=== PATIENT | male | born 1960 | race Caucasian/White ===

== ENCOUNTER 2016-08-25 10:32 | Inpatient (IN) | payer SELFPAY ==
[~2016-08-25] VITALS: Ht 180.3 cm; Wt 65.4 kg
[2016-08-25] MEDS ORDERED: IV NORMAL SALINE 1000ML BAG 1,000 ML IV SCH (11:01)
[2016-08-25] MEDS ORDERED: ONDANSETRON PF 4 MG/2 ML VIAL. IV ONE (11:15)
[2016-08-25] MEDS ORDERED: LIDO:MAALOX:DONNATAL 1:1:1 15 ML SINGLE DOSE SWSW ONE (11:15)
--- NOTE | 2016-08-25 11:16 | ED.ADGEN ---
Past Medical History Past Medical History: Anxiety Past Surgical History: Other Additional Past Surgical Histo: COLOSTOMY R/T RUPTURE,ELBOW Additional Information: 1 PPD Alcohol Use: Heavy Additional Information: DRINKS 6 PACK OF BEER A DAY Drug Use: None Adult General Chief Complaint Chief Complaint: NAUSEA/VOMITING/DIARRHA HPI HPI Patient is a 56 year old man, history of a colostomy status post diverticulitis with colonic perforation, anxiety, who presents to the emergency department with complaint of generalized malaise, subjective fevers and chills, rhinorrhea, cough productive of green and white sputum, body aches, nausea, vomiting, abdominal cramping over the past day. Patient denies any sick contacts or exposures, did not receive a flu vaccination this year. One episode of emesis in the emergency department. Food and fluid, no blood. No bile. Patient states that he is having a sore throat as well, feels as though "there is a ball" in the back of my throat. No difficulty with breathing or swallowing. Decreased appetite. No recent travel or surgery, no chest pain or shortness of breath. No swelling extremities. Normal ostomy output. Review of Systems Review of Systems Constitutional: Subjective fevers and chills, generalized malaise. Eyes: Denies change in visual acuity. [] HENT: Nasal congestion and sore throat. Respiratory: Cough productive of green white sputum, no shortness of breath.] Cardiovascular: Denies chest pain or edema. [] GI: Abdominal pain, nausea, vomiting, no bloody stools or diarrhea. : Denies dysuria. [] Musculoskeletal: Denies back pain or joint pain. [] Integument: Denies rash. [] Neurologic: Denies headache, focal weakness or sensory changes. [] Endocrine: Denies polyuria or polydipsia. [] Lymphatic: Denies swollen glands. [] Psychiatric: Denies depression or anxiety. [] Current Medications Current Medications Current Medications Medications (Trade) Dose Ordered Sig/Christoph Start Time Stop Time Status Last Admin Dose Admin Dexamethasone Sodium Phosphate 6 mg 6 mg 1X ONCE 08/25/16 11:45 08/25/16 11:46 DC 08/25/16 11:39 6 MG Iohexol (Omnipaque 300 Mg/ml) 75 ml 1X ONCE 08/25/16 12:00 08/25/16 12:01 DC 08/25/16 12:04 75 ML Lorazepam (Ativan) 2 mg Q6H 08/25/16 12:00 08/26/16 18:01 08/25/16 12:35 2 MG Multi-Ingredient Mouthwash/Gargle 15 ml 15 ml 1X ONCE 08/25/16 11:15 08/25/16 11:16 DC 08/25/16 11:29 15 ML Multivitamins/ Minerals/Thiamine HCl/Folic Acid/ Sodium Chloride (Infuvite Adult/ Iv Sodium Chloride 0.9% 1000ml Bag) 1,011.2 ml @ 100 mls/ hr DAILY 08/25/16 12:00 08/31/16 11:59 08/25/16 12:21 100 MLS/HR Ondansetron HCl (Zofran) 4 mg 1X ONCE 08/25/16 11:15 08/25/16 11:16 DC 08/25/16 11:29 4 MG Sodium Chloride (Iv Sodium Chloride 0.9% 1000ml Bag) 1,000 ml @ 1,000 mls/hr Q1H 08/25/16 11:01 08/25/16 12:00 DC 08/25/16 11:29 1,000 MLS/HR Allergies Allergies Allergies Coded Allergies Type Severity Reaction Last Updated Verified No Known Drug Allergies 08/25/16 No Physical Exam Physical Exam Constitutional: Well developed, well nourished, no acute distress, non-toxic appearance. [] HENT: Normocephalic, atraumatic, bilateral external ears normal, oropharynx moist, patient was injected oropharynx, with slightly enlarged uvula, no evidence of peritonsillar abscess formation, no exudates, oropharynx otherwise clear, term this or swollen bilaterally, with clear rhinorrhea noted. Eyes: PERRLA, EOMI, conjunctiva normal, no discharge. [] Neck: Normal range of motion, no tenderness, supple, no stridor. [] Cardiovascular:Heart rate regular rhythm, no murmur , S1, S2, rubs or gallops. [ ] Lungs & Thorax: Bilateral breath sounds clear to auscultation, no wheezing, rhonchi, rales. No chest wall crepitus or tenderness. [] Abdomen: Bowel sounds normal, soft, mild tenderness palpation in the periumbilical region, patient with ostomy in place, no masses, no pulsatile masses. [] Skin: Warm, dry, no erythema, no rash. [] Back: No tenderness, no CVA tenderness. [] Extremities: No tenderness, no cyanosis, no clubbing, ROM intact, no edema. [] Neurologic: Alert and oriented X 3, normal motor function, normal sensory function, no focal deficits noted. [] Psychologic: Affect normal, judgement normal, mood normal. [] Current Patient Data Vital Signs Vital Signs Date Time Temp Pulse Resp B/P Pulse Ox O2 Delivery O2 Flow Rate FiO2 08/25/16 10:47 97.7 86 28 196/112 93 Room Air 97.7 Lab Values Laboratory Tests Test 08/25/16 10:47 08/25/16 10:51 White Blood Count 9.1x10^3/uL (4.0-11.0) Red Blood Count 4.84x10^6/uL (4.30-5.70) Hemoglobin 15.8g/dL (13.0-17.5) Hematocrit 45.5% (39.0-53.0) Mean Corpuscular Volume 94fL (79-100) Mean Corpuscular Hemoglobin 33pg (25-35) Mean Corpuscular Hemoglobin Concent 35g/dL (31-37) Red Cell Distribution Width 13.6% (11.5-14.5) Platelet Count 361x10^3/uL (140-400) Neutrophils (%) (Auto) 75% (31-73) H Lymphocytes (%) (Auto) 17% (24-48) L Monocytes (%) (Auto) 6% (0-9) Eosinophils (%) (Auto) 1% (0-3) Basophils (%) (Auto) 1% (0-3) Neutrophils # (Auto) 6.9x10^3uL (1.8-7.7) Lymphocytes # (Auto) 1.6x10^3/uL (1.0-4.8) Monocytes # (Auto) 0.6x10^3/uL (0.0-1.1) Eosinophils # (Auto) 0.0x10^3/uL (0.0-0.7) Basophils # (Auto) 0.1x10^3/uL (0.0-0.2) Sodium Level 144mmol/L (136-145) Potassium Level 3.8mmol/L (3.5-5.1) Chloride Level 102mmol/L (98-107) Carbon Dioxide Level 31mmol/L (21-32) Anion Gap 11 (6-14) Blood Urea Nitrogen 9mg/dL (8-26) Creatinine 0.6mg/dL (0.7-1.3) L Estimated GFR (Cockcroft-Gault) 139.9 BUN/Creatinine Ratio 15 (6-20) Glucose Level 157mg/dL (70-99) H Calcium Level 9.3mg/dL (8.5-10.1) Total Bilirubin 0.3mg/dL (0.2-1.0) Aspartate Amino Transferase (AST) 37U/L (15-37) Alanine Aminotransferase (ALT) 56U/L (16-63) Alkaline Phosphatase 113U/L (46-116) Total Protein 7.8g/dL (6.4-8.2) Albumin 4.1g/dL (3.4-5.0) Albumin/Globulin Ratio 1.1 (1.0-1.7) Lipase 1063U/L (73-393) H Ethyl Alcohol Level 13mg/dL (0-10) H Influenza Type A Antigen Negative (NEGATIVE) Influenza Type B Antigen Negative (NEGATIVE) Laboratory Tests 08/25/16 10:47 Laboratory Tests 08/25/16 10:47 EKG EKG EC: Sinus rhythm, heart rate 85 bpm, right axis deviation, with mild baseline artifact, QTC of 455, ND 184, QRS 96, contour abnormalities noted in the inferior leads and the lateral leads, right ventricular hypertrophy noted, abnormal ECG, does not meet STEMI criteria. As interpreted by me. Radiology/Procedures Radiology/Procedures [] [facility] [address] [place] [address] IMAGING REPORT Signed PATIENT: HAKAN HE ACCOUNT: [id number] : 1960 LOCATION: ER AGE: 56 SEX: M EXAM STATUS: REG ER ORD. PHYSICIAN: NANALISA BLAKE DO REASON: abd pain/n/v/pancreatitis PROCEDURE: ABD PELV W/ IV CONTRAST ONLY PQRS Compliance Statement: One or more of the following individualized dose reduction techniques were utilized for this examination: 1. Automated exposure control 2. Adjustment of the mA and/or kV according to patient size 3. Use of iterative reconstruction technique CT of the abdomen and pelvis with contrast, 08/25/2016: History: Abdominal pain Multidetector CT imaging was performed following an IV bolus injection of iodinated contrast material. No oral contrast material was administered as requested. No hepatic abnormality is identified. The gallbladder is unremarkable. There is no evidence of a pancreatic mass or peripancreatic inflammation. The spleen is of normal size. The kidneys show no evidence of obstruction. A tiny subcentimeter low density lesion left kidney is too small to definitively characterize, but is probably a cyst. There is moderate aortoiliac calcific plaquing without evidence of aneurysm. No abdominal or pelvic adenopathy is seen. A colostomy is present in the left lower quadrant. A rectal stump is visible. There is a moderate amount stool in the colon. The small bowel loops are unremarkable. A portion of the appendix is visualized and shows no abnormality. No free air or significant free fluid is evident in the abdomen or pelvis. Moderate degenerative changes are present in the spine, particularly at the L5-S1 disc level. IMPRESSION: No acute abdominal or pelvic abnormality is detected. DICTATED and SIGNED BY: LYDIA SERRANO MD DATE: 08/25/16 1240 CC: ANNALISA BLAKE DO; NO PCP ~ Course & Med Decision Making Course & Med Decision Making Pertinent Labs and Imaging studies reviewed. (See chart for details) Patient with vomiting in the emergency department, complaining of sore throat, generalized malaise and abdominal pain. Laboratory studies obtained, reveal a lipase of 1063, influenza swabs are negative. Reexamination patient didn't speak very tender in the abdomen, and in the epigastric and left her quadrant region, CT of the abdomen and pelvis obtained to rule out any evidence of abscess formation or other concerning finding. CT abdomen and pelvis does not reveal any evidence of acutely concerning findings, did discuss this with patient, he remains nauseous, although he is not having any further vomiting since receiving Zofran in the ED. Patient states he does drink about a sixpack daily, has not had anything to drink today due to vomiting. No evidence of ketosis. Is agreeable for initial hospital for treatment of his pancreatitis with IV fluids and bowel rest. Findings as above discussed with Dr. Juarez of internal medicine, patient accepted to her service as a full admission to the medical surgical floor with plan for IV hydration and symptom management, bridge ordered entered per her request. Dragon Disclaimer Dragon Disclaimer This electronic medical record was generated, in whole or in part, using a voice recognition dictation system. Departure Impression: Primary Impression: Pancreatitis, acute Additional Impression: Alcohol abuse Disposition: HOME, SELF-CARE Admitting Physician: Daisy Juarez Condition: STABLE Problem Qualifiers Primary Impression: Pancreatitis, acute Pancreatitis type: alcohol induced Acute pancreatitis complication: unspecified Qualified Code: K85.20 - Alcohol induced acute pancreatitis without necrosis or infection ANNALISA BLAKE DO Aug 25, 2016 11:16
[2016-08-25 11:17] LABS: BASO # 0.1 x10^3/uL (0.0-0.2); BASO % 1 % (0-3); EOS % 1 % (0-3); HEMATOCRIT 45.5 % (39.0-53.0); HEMOGLOBIN 15.8 g/dL (13.0-17.5); LYMPH # 1.6 x10^3/uL (1.0-4.8); LYMPH % 17 % (24-48); MEAN CORPUSCULAR HEMOGLOBIN 33 pg (25-35); MEAN CORPUSCULAR HGB CONC 35 g/dL (31-37); MEAN CORPUSCULAR VOLUME 94 fL (79-100); MONO % 6 % (0-9); NEUT % 75 % (31-73); PLATELET COUNT 361 x10^3/uL (140-400); RED BLOOD COUNT 4.84 x10^6/uL (4.30-5.70); RED CELL DISTRIBUTION WIDTH 13.6 % (11.5-14.5); WHITE BLOOD COUNT 9.1 x10^3/uL (4.0-11.0)
[2016-08-25 11:25] LABS: CALCIUM 9.3 mg/dL (8.5-10.1); CREATININE 0.6 mg/dL (0.7-1.3); GFR 139.9; POTASSIUM 3.8 mmol/L (3.5-5.1)
[2016-08-25 11:30] LABS: ALBUMIN 4.1 g/dL (3.4-5.0); ALBUMIN/GLOBULIN RATIO 1.1 (1.0-1.7); TOTAL BILIRUBIN 0.3 mg/dL (0.2-1.0); TOTAL PROTEIN 7.8 g/dL (6.4-8.2)
--- NOTE | 2016-08-25 11:33 | EKG ---
[facility] [address] [place] [address] Test Date: 2016-08-25 Test Time: 10:51:25 Pat Name: HAKAN HE Department: Room: Gender: Manager Printing: : 1960 Requested By: ANNALISA BLAKE Order Number: [id number] Reading MD: Patrizia Alcaraz Measurements Intervals [place] Rate: 85 P: 90 WA: 194 QRS: 93 QRSD: 96 T: 139 QT: 382 QTc: 455 Interpretive Statements SINUS RHYTHM RIGHTWARD AXIS QRS(T) CONTOUR ABNORMALITY CONSIDER INFERIOR MYOCARDIAL DAMAGE T ABNORMALITY IN HIGH LATERAL LEADS ABNORMAL ECG RI6.01 No previous ECG available for comparison Electronically Signed On 08-28-2016 20:29:36 SPINAL SURGEON by Patrizia Alcaraz
[2016-08-25 11:40] LABS: OBC FLU VALID
[2016-08-25] MEDS ORDERED: DEXAMETHASONE SOD PHOS 4 MG/ML VIAL IV ONE (11:45)
--- NOTE | 2016-08-25 11:46 | RAD ---
Abdomen series with chest, 3 views, 08/25/2016: History: Abdominal pain, and nausea and vomiting, cough The abdominal gas pattern is unremarkable without evidence of obstruction. No free air is seen in the abdomen. Surgical clips are present in the upper pelvis. Aortoiliac calcific plaquing is present. The heart size is normal. A calcified granuloma is present in the right lung. A small opacity projected over the left apex is unchanged and probably represents a scar. No new pulmonary abnormality is seen. There is no evidence of pleural fluid. IMPRESSION: No acute abnormality is identified in the abdomen or chest.
[2016-08-25] MEDS ORDERED: IOHEXOL 300 MG/ML 75 ML VIAL IV ONE (12:00)
[2016-08-25] MEDS: MVI, ADULT NO.4 WITH VIT K 10 ML, THIAMINE 100 MG, FOLIC ACID 1 MG in IV NORMAL SALINE ... IV SCH ×4 (12:21)
[2016-08-25] MEDS: LORAZEPAM 1 MG TABLET. PO SCH ×2 (12:35→19:29)
--- NOTE | 2016-08-25 12:48 | RAD ---
PQRS Compliance Statement: One or more of the following individualized dose reduction techniques were utilized for this examination: 1. Automated exposure control 2. Adjustment of the mA and/or kV according to patient size 3. Use of iterative reconstruction technique CT of the abdomen and pelvis with contrast, 08/25/2016: History: Abdominal pain Multidetector CT imaging was performed following an IV bolus injection of iodinated contrast material. No oral contrast material was administered as requested. No hepatic abnormality is identified. The gallbladder is unremarkable. There is no evidence of a pancreatic mass or peripancreatic inflammation. The spleen is of normal size. The kidneys show no evidence of obstruction. A tiny subcentimeter low density lesion left kidney is too small to definitively characterize, but is probably a cyst. There is moderate aortoiliac calcific plaquing without evidence of aneurysm. No abdominal or pelvic adenopathy is seen. A colostomy is present in the left lower quadrant. A rectal stump is visible. There is a moderate amount stool in the colon. The small bowel loops are unremarkable. A portion of the appendix is visualized and shows no abnormality. No free air or significant free fluid is evident in the abdomen or pelvis. Moderate degenerative changes are present in the spine, particularly at the L5-S1 disc level. IMPRESSION: No acute abdominal or pelvic abnormality is detected.
[2016-08-25] MEDS ORDERED: ONDANSETRON PF 4 MG/2 ML VIAL. IV PRN ×2 (14:00→15:01)
[2016-08-25] MEDS ORDERED: ACETAMINOPHEN 325 MG TABLET. PO PRN (14:00)
[2016-08-25] MEDS ORDERED: MORPHINE SULFATE 4 MG/ML DISP.SYRIN. IV PRN (14:00)
--- NOTE | 2016-08-25 15:13 | ACF ---
Admission Forms Criteria PANCREATITIS Clinical Indications for Admission to Inpatient Care (Place 'X' for any and all applicable criteria): Admission is indicated for ANY ONE of the following (1)(2)(3)(4): [X]I. Acute pancreatitis[A] as indicated by 2 or more of the following: [X]a) Abdominal pain (eg, epigastric, left upper quadrant) [X]b) Serum amylase or serum lipase greater than 3 times the upper limit of normal [ ]c) Characteristic findings from abdominal imaging (eg, pancreatic inflammation, pancreatic necrosis, peripancreatic fluid collection)[B] [ ]II. Pancreatitis (acute or chronic ) requiring inpatient care as indicated by 1 or more of the following : [ ]a) Inability to maintain oral hydration Hypoxemia [ ]b) Evidence of infection (eg, fever, peripancreatic abscess) [ ]c) Severe pain requiring acute inpatient management [ ]d) Hemodynamic instability [ ]e) Hypoxemia [ ]f) Acute renal failure [ ]g) Severe electrolyte abnormalities Extended stay beyond goal length of stay may be needed for (1)(11) [ ]a) Severe acute pancreatitis (10)(19) [ ]b) Persistent symptoms, ascites, or pleural effusion [ ]c) Abdominal compartment syndrome (10) [ ]d) Late complications [ ]e) Acute renal failure (27) [ ]f) Gallstones in gallbladder The original [email or web address] content created by [email or web address] has been revised. The portions of the content which have been revised are identified through the use of italic text or in bold,and [facility] has neither reviewed nor approved the modified material.All other unmodified content is copyright [employer] [facility]. Please see references footnoted in the original [employer] [facility] edition 2016 Admission Criteria Met?: Yes NO C[place] Aug 25, 2016 15:13
[2016-08-25] MEDS ORDERED: ZOLPIDEM 5 MG TABLET. PO PRN (15:15)
--- NOTE | 2016-08-25 15:29 | PDOC1 ---
History and Physical Date of Admission Date of Admission DATE: 08/25/16 TIME: 15:24 Identification/Chief Complaint Chief Complaint abd pain, emesis Source Source: Caregiver, Chart review, Patient History of Present Illness History of Present Illness 56 y/o male who only takes elavil at home, heavy drinker (6 packs a day), comes in bec of emesis, abd pain, etoh level at er was 13m lipase 1060. CTs can fails to show pancreatic inflammation but did show his indwelling colostomy bag left side from a perforated diverticulitis 2 yrs ago at [facility] and some DJD LS spine, Pt admitted for acute panc. ALso smokes 1 ppday NO GB stones seen, non obese Past Medical History Cardiovascular: No pertinent hx Pulmonary: No pertinent hx GI: No pertinent hx Heme/Onc: No pertinent hx Hepatobiliary: No pertinent hx Psych: Depression Infectious disease: No pertinent hx ENT: No pertinent hx Renal/: No pertinent hx Endocrine: No pertinent hx Dermatology: No pertinent hx Past Surgical History Past Surgical History: No pertinent history Family History Family History: No Significant Social History Smoke: 1 pack per day ALCOHOL: heavy Drugs: None Current Problem List Problem List Problems Medical Problems: (1) Alcohol abuse Status: Acute (2) Pancreatitis, acute Status: Acute Problems: Current Medications Current Medications Current Medications Multi-Ingredient Mouthwash/Gargle 15 ml 15 ml 1X ONCE SWSW Last administered on 08/25/16 11:29; Start 08/25/16 at 11:15; Stop 08/25/16 at 11:16; Status DC Sodium Chloride (Iv Sodium Chloride 0.9% 1000ml Bag) 1,000 ml @ 1,000 mls/hr Q1H IV Last administered on 08/25/16 11:29; Start 08/25/16 at 11:01; Stop at 12:00; Status DC Ondansetron HCl (Zofran) 4 mg 1X ONCE IV Last administered on 08/25/16 11:29 ; Start 08/25/16 at 11:15; Stop 08/25/16 at 11:16; Status DC Dexamethasone Sodium Phosphate 6 mg 6 mg 1X ONCE IV Last administered on 11:39; Start 08/25/16 at 11:45; Stop 08/25/16 at 11:46; Status DC Multivitamins/ Minerals/Thiamine HCl/Folic Acid/ Sodium Chloride (Infuvite Adult / Iv Sodium Chloride 0.9% 1000ml Bag) 1,011.2 ml @ 100 mls/ hr DAILY IV Last administered on 08/25/16 12:21; Start 08/25/16 at 12:00; Stop 08/31/16 at 11:59 Lorazepam (Ativan) 2 mg Q6H PO Last administered on 08/25/16 12:35; Start at 12:00; Stop 08/26/16 at 18:01 Iohexol (Omnipaque 300 Mg/ml) 75 ml 1X ONCE IV Last administered on 08/25/16 12:04; Start 08/25/16 at 12:00; Stop 08/25/16 at 12:01; Status DC Ondansetron HCl (Zofran) 4 mg PRN Q8HRS PRN IV NAUSEA/VOMITING; Start 08/25/16 at 14:00; Stop 08/25/16 at 15:03; Status DC Morphine Sulfate 4 mg PRN Q2HR PRN IV PAIN; Start 08/25/16 at 14:00; Stop 08/26 at 13:59 Acetaminophen (Tylenol) 650 mg PRN Q4HRS PRN PO FEVER; Start 08/25/16 at 14:00 ; Stop 08/26/16 at 13:59 Ondansetron HCl 4 mg 4 mg PRN Q6HRS PRN IV NAUSEA/VOMITING; Start 08/25/16 at 15:01 Sodium Chloride (Iv Sodium Chloride 0.9% 1000ml Bag) 1,000 ml @ 100 mls/hr Q10H IV ; Start 08/25/16 at 15:15 Zolpidem Tartrate (Ambien) 5 mg PRN QHS PRN PO INSOMNIA; Start 08/25/16 at 15: 15 Allergies Allergies: Coded Allergies: No Known Drug Allergies (Unverified , 08/25/16) ROS General: No: Appetite, Chills, Fatigue, Malaise, Night Sweats, Other PSYCHOLOGICAL ROS: No: Anxiety, Behavioral Disorder, Concentration difficultie , Decreased libido, Depression, Disorientation, Hallucinations, Hostility, Irritablity, Memory difficulties, Mood Swings, Obsessive thoughts, Other, Physical abuse, Sexual abuse, Sleep disturbances, Suicidal ideation Eyes: No Blurry vision, No Decreased vision, No Double vision, No Dry eyes, No Excessive tearing, No Eye Pain, No Itchy Eyes, No Loss of vision, No Other, No Photophobia, No Scotomata, No Uses contacts, No Uses glasses HEENT: No: Epistaxis, Heacaches, Hearing change, Nasal congestion, Nasal discharge, Oral lesions, Other, Sinus pain, Sneezing, Snoring, Sore Throat, Tinnitus, Vertigo, Visual Changes, Vocal changes ALLERGY AND IMMUNOLOGY: No: Hives, Insect Bite Sensitivity, Itchy/Watery Eyes, Nasal Congestion, Other, Post Nasal Drip, Seasonal Allergies Hematological and Lymphatic: No: Bleeding Problems, Blood Clots, Blood Transfusions, Brusing, Night Sweats, Other, Pallor, Swollen Lymph Nodes ENDOCRINE: No: Breast Changes, Galactorrhea, Hair Pattern Changes, Hot Flashes , Malaise/lethargy, Mood Swings, Other, Palpitations, Polydipsia/polyuria, Skin Changes, Temperature Intolerance, Unexpected Weight Changes Breast: No New/Changing Breast Lumps, No Nipple changes, No Nipple discharge, No Other Respiratory: No: Cough, Hemoptysis, Orthopnea, Other, Pleuritic Pain, SOB with excertion, Shortness of breath, Sputum Changes, Stridor, Tachypnea, Wheezing Cardiovascular: No Chest Pain, No Edema, No Lt Headedness, No Orthopnea, No Other, No Palpitations, No Paroxysmal Noc. Dyspnea Gastrointestinal: Yes Abdominal Pain, Yes Nausea, Yes Vomiting Genitourinary: No , No , No , No , No , No , No , No Discharge, No Dysuria, No Flank Pain, No Frequency, No Hematuria, No Incontinence, No Other, No Pain, No Retention, No Urgency Musculoskeletal: No Gait Disturbance, No Joint Pain, No Joint Stiffness, No Joint Swelling, No Muscle Pain, No Muscular Weakness, No Other, No Pain In:, No Swelling In: Neurological: No Behavorial Changes, No Bowel/Bladder ControlChng, No Confusion , No Dizziness, No Gait Disturbance, No Headaches, No Impaired Coord/balance, No Memory Loss, No Numbness/Tingling, No Other, No Seizures, No Speech Problems , No Tremors, No Visual Changes, No Weakness Skin: No Acne, No Dry Skin, No Eczema, No Hair Changes, No Lumps, No Mole Changes, No Mottling, No Nail Changes, No Other, No Pruritus, No Rash, No Skin Lesion Changes Physical Exam General: Alert, Oriented X3, Cooperative, No acute distress HEENT: PERRLA, EOMI Lungs: Clear to auscultation, Normal air movement Heart: S1S2, RRR, no gallops Cardiovascular: S1, S2 Breasts: Normal Abdomen: Normal bowel sounds, Soft, No tenderness, No hepatosplenomegaly, No masses Male Genitals Exam: normal genitalia, normal prostate Extremities: No clubbing, No cyanosis, No edema, Normal pulses, No tenderness/ swelling Skin: No rashes, No breakdown, No significant lesion Vitals Vitals Vital Signs Date Time Temp Pulse Resp B/P Pulse Ox O2 Delivery O2 Flow Rate FiO2 08/25/16 13:56 74 13 139/85 Room Air 08/25/16 10:47 97.7 93 97.7 Labs Labs Laboratory Tests Test 08/25/16 10:47 08/25/16 10:51 White Blood Count 9.1x10^3/uL (4.0-11.0) Red Blood Count 4.84x10^6/uL (4.30-5.70) Hemoglobin 15.8g/dL (13.0-17.5) Hematocrit 45.5% (39.0-53.0) Mean Corpuscular Volume 94fL (79-100) Mean Corpuscular Hemoglobin 33pg (25-35) Mean Corpuscular Hemoglobin Concent 35g/dL (31-37) Red Cell Distribution Width 13.6% (11.5-14.5) Platelet Count 361x10^3/uL (140-400) Neutrophils (%) (Auto) 75% (31-73) Lymphocytes (%) (Auto) 17% (24-48) Monocytes (%) (Auto) 6% (0-9) Eosinophils (%) (Auto) 1% (0-3) Basophils (%) (Auto) 1% (0-3) Neutrophils # (Auto) 6.9x10^3uL (1.8-7.7) Lymphocytes # (Auto) 1.6x10^3/uL (1.0-4.8) Monocytes # (Auto) 0.6x10^3/uL (0.0-1.1) Eosinophils # (Auto) 0.0x10^3/uL (0.0-0.7) Basophils # (Auto) 0.1x10^3/uL (0.0-0.2) Sodium Level 144mmol/L (136-145) Potassium Level 3.8mmol/L (3.5-5.1) Chloride Level 102mmol/L (98-107) Carbon Dioxide Level 31mmol/L (21-32) Anion Gap 11 (6-14) Blood Urea Nitrogen 9mg/dL (8-26) Creatinine 0.6mg/dL (0.7-1.3) Estimated GFR (Cockcroft-Gault) 139.9 BUN/Creatinine Ratio 15 (6-20) Glucose Level 157mg/dL (70-99) Calcium Level 9.3mg/dL (8.5-10.1) Total Bilirubin 0.3mg/dL (0.2-1.0) Aspartate Amino Transf (AST/SGOT) 37U/L (15-37) Alanine Aminotransferase (ALT/SGPT) 56U/L (16-63) Alkaline Phosphatase 113U/L (46-116) Total Protein 7.8g/dL (6.4-8.2) Albumin 4.1g/dL (3.4-5.0) Albumin/Globulin Ratio 1.1 (1.0-1.7) Lipase 1063U/L (73-393) Ethyl Alcohol Level 13mg/dL (0-10) Influenza Type A Antigen Negative (NEGATIVE) Influenza Type B Antigen Negative (NEGATIVE) Laboratory Tests Test 08/25/16 10:47 08/25/16 10:51 White Blood Count 9.1x10^3/uL (4.0-11.0) Red Blood Count 4.84x10^6/uL (4.30-5.70) Hemoglobin 15.8g/dL (13.0-17.5) Hematocrit 45.5% (39.0-53.0) Mean Corpuscular Volume 94fL (79-100) Mean Corpuscular Hemoglobin 33pg (25-35) Mean Corpuscular Hemoglobin Concent 35g/dL (31-37) Red Cell Distribution Width 13.6% (11.5-14.5) Platelet Count 361x10^3/uL (140-400) Neutrophils (%) (Auto) 75% (31-73) Lymphocytes (%) (Auto) 17% (24-48) Monocytes (%) (Auto) 6% (0-9) Eosinophils (%) (Auto) 1% (0-3) Basophils (%) (Auto) 1% (0-3) Neutrophils # (Auto) 6.9x10^3uL (1.8-7.7) Lymphocytes # (Auto) 1.6x10^3/uL (1.0-4.8) Monocytes # (Auto) 0.6x10^3/uL (0.0-1.1) Eosinophils # (Auto) 0.0x10^3/uL (0.0-0.7) Basophils # (Auto) 0.1x10^3/uL (0.0-0.2) Sodium Level 144mmol/L (136-145) Potassium Level 3.8mmol/L (3.5-5.1) Chloride Level 102mmol/L (98-107) Carbon Dioxide Level 31mmol/L (21-32) Anion Gap 11 (6-14) Blood Urea Nitrogen 9mg/dL (8-26) Creatinine 0.6mg/dL (0.7-1.3) Estimated GFR (Cockcroft-Gault) 139.9 BUN/Creatinine Ratio 15 (6-20) Glucose Level 157mg/dL (70-99) Calcium Level 9.3mg/dL (8.5-10.1) Total Bilirubin 0.3mg/dL (0.2-1.0) Aspartate Amino Transf (AST/SGOT) 37U/L (15-37) Alanine Aminotransferase (ALT/SGPT) 56U/L (16-63) Alkaline Phosphatase 113U/L (46-116) Total Protein 7.8g/dL (6.4-8.2) Albumin 4.1g/dL (3.4-5.0) Albumin/Globulin Ratio 1.1 (1.0-1.7) Lipase 1063U/L (73-393) Ethyl Alcohol Level 13mg/dL (0-10) Influenza Type A Antigen Negative (NEGATIVE) Influenza Type B Antigen Negative (NEGATIVE) VTE Prophylaxis Ordered VTE Prophylaxis Devices: Yes VTE Pharmacological Prophylaxi: Yes Assessment/Plan Assessment/Plan 1.Acute alcoholic pancreatitis 2. EtoH, heavy 3. 1ppday smoker 4. SIRS pOA, no sepsis, no organ dysfcn 5. MIld pCM PLAN: NPO, IVF Recheck lipase bharti SOLO, banana bag Benzos Nicotine patch MAy check lipids Counselled re etoh seen at ER TOMMY CHISHOLM MD Aug 25, 2016 15:28
[2016-08-25] MEDS ORDERED: CHLORDIAZEPOXIDE HCL 25 MG CAPSULE PO PRN (15:30)
[2016-08-25 16:23] LABS: BILIRUBIN,URINE NEGATIVE (NEG); GLUCOSE,URINE NEGATIVE (NEG); NITRITE,URINE NEGATIVE (NEG); PROTEIN,URINE NEGATIVE (NEG-TRACE); UROBILINOGEN,URINE 0.2 mg/dL (0.2 mg/dL)
[2016-08-25 16:26] LABS: BARBITURATES NEG (NEG); BENZODIAZEPINES NEG (NEG); CANNABINOIDS NEG (NEG); COCAINE NEG (NEG); METHADONE NEG (NEG); OPIATES POS (NEG); PHENCYCLIDINE NEG (NEG)
[2016-08-25 16:29] LABS: ETHANOL, URINE POS (NEG)
[2016-08-25 16:36] LABS: BACTERIA,URINE 0 /HPF (0-FEW); RBC,URINE 0 /HPF (0-2); WBC,URINE 0 /HPF (0-4)
[2016-08-25 19:00] VITALS: BP 141/81
[2016-08-25] MEDS ORDERED: INFLUENZA VAX SCREEN BY RX. MC ONE (20:15)
[2016-08-25] MEDS ORDERED: AMIT50TA PO (20:18)
[2016-08-25] MEDS ORDERED: NICOTINE 21MG PATCH. TD SCH (21:00)
[2016-08-25] MEDS ORDERED: AMITRIPTYLINE HCL 50 MG TABLET PO SCH (21:00)
[2016-08-25 22:48] VITALS: BP 137/82
[2016-08-26] MEDS: IV NORMAL SALINE 1000ML BAG 1,000 ML IV SCH ×3 (00:34→11:15)
[2016-08-26] MEDS: LORAZEPAM 1 MG TABLET. PO SCH ×3 (00:35→11:48)
[2016-08-26 04:50] LABS: BASO % 0 % (0-3); EOS % 0 % (0-3); HEMATOCRIT 42.9 % (39.0-53.0); HEMOGLOBIN 14.4 g/dL (13.0-17.5); LYMPH % 15 % (24-48); MEAN CORPUSCULAR HEMOGLOBIN 32 pg (25-35); MEAN CORPUSCULAR HGB CONC 33 g/dL (31-37); MEAN CORPUSCULAR VOLUME 96 fL (79-100); MONO % 9 % (0-9); NEUT % 76 % (31-73); PLATELET COUNT 282 x10^3/uL (140-400); RED BLOOD COUNT 4.47 x10^6/uL (4.30-5.70); RED CELL DISTRIBUTION WIDTH 13.6 % (11.5-14.5); WHITE BLOOD COUNT 6.9 x10^3/uL (4.0-11.0)
[2016-08-26 05:09] LABS: CALCIUM 8.7 mg/dL (8.5-10.1); CREATININE 0.5 mg/dL (0.7-1.3); GFR 172.6; POTASSIUM 3.4 mmol/L (3.5-5.1)
[2016-08-26 05:14] LABS: CHOLESTEROL/HDL RATIO 3.2
[2016-08-26 07:00] VITALS: BP 119/87
[2016-08-26] MEDS ORDERED: FLU VACC QUAD 2016-17 (36MOS+)/PF 0.5 ML SYRINGE. VAX IM ONE (09:00)
[2016-08-26] MEDS: MVI, ADULT NO.4 WITH VIT K 10 ML, THIAMINE 100 MG, FOLIC ACID 1 MG in IV NORMAL SALINE ... IV SCH ×4 (09:07)
[2016-08-26] MEDS ORDERED: POTASSIUM CHLORIDE 20 MEQ TABLET.ER. PO ONE (09:15)
[2016-08-26] MEDS ORDERED: HYDR-2678 PO (10:40)
--- NOTE | 2016-08-26 10:41 | PDOC3 ---
Discharge Summary Visit Information Date of Admission: Aug 25, 2016 Date of Discharge: Aug 26, 2016 Admitting Diagnosis Comment: acute alcoholic pancreatitis Final Diagnosis Problems Medical Problems: (1) Alcohol abuse Status: Acute (2) Pancreatitis, acute Status: Acute Brief Hospital Course Allergies Allergies Coded Allergies Type Severity Reaction Last Updated Verified No Known Drug Allergies 08/25/16 No Vital Signs Vital Signs Date Time Temp Pulse Resp B/P Pulse Ox O2 Delivery O2 Flow Rate FiO2 08/26/16 07:00 97.9 83 18 119/87 94 Room Air 97.9 Lab Results Laboratory Tests Test 08/25/16 10:47 08/25/16 10:51 08/25/16 15:50 08/26/16 03:45 White Blood Count 9.1x10^3/uL (4.0-11.0) 6.9x10^3/uL (4.0-11.0) Red Blood Count 4.84x10^6/uL (4.30-5.70) 4.47x10^6/uL (4.30-5.70) Hemoglobin 15.8g/dL (13.0-17.5) 14.4g/dL (13.0-17.5) Hematocrit 45.5% (39.0-53.0) 42.9% (39.0-53.0) Mean Corpuscular Volume 94fL (79-100) 96fL (79-100) Mean Corpuscular Hemoglobin 33pg (25-35) 32pg (25-35) Mean Corpuscular Hemoglobin Concent 35g/dL (31-37) 33g/dL (31-37) Red Cell Distribution Width 13.6% (11.5-14.5) 13.6% (11.5-14.5) Platelet Count 361x10^3/uL (140-400) 282x10^3/uL (140-400) Neutrophils (%) (Auto) 75% (31-73) 76% (31-73) Lymphocytes (%) (Auto) 17% (24-48) 15% (24-48) Monocytes (%) (Auto) 6% (0-9) 9% (0-9) Eosinophils (%) (Auto) 1% (0-3) 0% (0-3) Basophils (%) (Auto) 1% (0-3) 0% (0-3) Neutrophils # (Auto) 6.9x10^3uL (1.8-7.7) 5.3x10^3uL (1.8-7.7) Lymphocytes # (Auto) 1.6x10^3/uL (1.0-4.8) 1.0x10^3/uL (1.0-4.8) Monocytes # (Auto) 0.6x10^3/uL (0.0-1.1) 0.6x10^3/uL (0.0-1.1) Eosinophils # (Auto) 0.0x10^3/uL (0.0-0.7) 0.0x10^3/uL (0.0-0.7) Basophils # (Auto) 0.1x10^3/uL (0.0-0.2) 0.0x10^3/uL (0.0-0.2) Sodium Level 144mmol/L (136-145) 142mmol/L (136-145) Potassium Level 3.8mmol/L (3.5-5.1) 3.4mmol/L (3.5-5.1) Chloride Level 102mmol/L (98-107) 104mmol/L (98-107) Carbon Dioxide Level 31mmol/L (21-32) 28mmol/L (21-32) Anion Gap 11 (6-14) 10 (6-14) Blood Urea Nitrogen 9mg/dL (8-26) 10mg/dL (8-26) Creatinine 0.6mg/dL (0.7-1.3) 0.5mg/dL (0.7-1.3) Estimated GFR (Cockcroft-Gault) 139.9 172.6 BUN/Creatinine Ratio 15 (6-20) Glucose Level 157mg/dL (70-99) 117mg/dL (70-99) Calcium Level 9.3mg/dL (8.5-10.1) 8.7mg/dL (8.5-10.1) Total Bilirubin 0.3mg/dL (0.2-1.0) Aspartate Amino Transf (AST/SGOT) 37U/L (15-37) Alanine Aminotransferase (ALT/SGPT) 56U/L (16-63) Alkaline Phosphatase 113U/L (46-116) Total Protein 7.8g/dL (6.4-8.2) Albumin 4.1g/dL (3.4-5.0) Albumin/Globulin Ratio 1.1 (1.0-1.7) Lipase 1063U/L (73-393) 113U/L (73-393) Ethyl Alcohol Level 13mg/dL (0-10) Influenza Type A Antigen Negative (NEGATIVE) Influenza Type B Antigen Negative (NEGATIVE) Urine Collection Type Unknown Urine Color Yellow Urine Clarity Clear Urine pH 8.0 Urine Specific [place] >=1.030 Urine Protein Negativemg/dL (NEG-TRACE) Urine Glucose (UA) Negativemg/dL (NEG) Urine Ketones (Stick) Tracemg/dL (NEG) Urine Blood Negative (NEG) Urine Nitrite Negative (NEG) Urine Bilirubin Negative (NEG) Urine Urobilinogen Dipstick 0.2mg/dL (0.2 mg/dL) Urine Leukocyte Esterase Negative (NEG) Urine RBC 0/HPF (0-2) Urine WBC 0/HPF (0-4) Urine Bacteria 0/HPF (0-FEW) Urine Mucus Slight/LPF Urine Opiates Screen Pos (NEG) Urine Methadone Screen Neg (NEG) Urine Barbiturates Neg (NEG) Urine Phencyclidine Screen Neg (NEG) Urine Amphetamine/Methamphetamine Neg (NEG) Urine Benzodiazepines Screen Neg (NEG) Urine Cocaine Screen Neg (NEG) Urine Cannabinoids Screen Neg (NEG) Urine Ethyl Alcohol Pos (NEG) Triglycerides Level 62mg/dL (0-150) Cholesterol Level 280mg/dL (0-200) LDL Cholesterol, Calculated 180mg/dL (0-100) VLDL Cholesterol, Calculated 12mg/dL (0-40) HDL Cholesterol 88mg/dL (40-60) Cholesterol/HDL Ratio 3.2 Laboratory Tests Test 08/25/16 10:47 08/25/16 10:51 08/25/16 15:50 08/26/16 03:45 White Blood Count 9.1x10^3/uL (4.0-11.0) 6.9x10^3/uL (4.0-11.0) Red Blood Count 4.84x10^6/uL (4.30-5.70) 4.47x10^6/uL (4.30-5.70) Hemoglobin 15.8g/dL (13.0-17.5) 14.4g/dL (13.0-17.5) Hematocrit 45.5% (39.0-53.0) 42.9% (39.0-53.0) Mean Corpuscular Volume 94fL (79-100) 96fL (79-100) Mean Corpuscular Hemoglobin 33pg (25-35) 32pg (25-35) Mean Corpuscular Hemoglobin Concent 35g/dL (31-37) 33g/dL (31-37) Red Cell Distribution Width 13.6% (11.5-14.5) 13.6% (11.5-14.5) Platelet Count 361x10^3/uL (140-400) 282x10^3/uL (140-400) Neutrophils (%) (Auto) 75% (31-73) 76% (31-73) Lymphocytes (%) (Auto) 17% (24-48) 15% (24-48) Monocytes (%) (Auto) 6% (0-9) 9% (0-9) Eosinophils (%) (Auto) 1% (0-3) 0% (0-3) Basophils (%) (Auto) 1% (0-3) 0% (0-3) Neutrophils # (Auto) 6.9x10^3uL (1.8-7.7) 5.3x10^3uL (1.8-7.7) Lymphocytes # (Auto) 1.6x10^3/uL (1.0-4.8) 1.0x10^3/uL (1.0-4.8) Monocytes # (Auto) 0.6x10^3/uL (0.0-1.1) 0.6x10^3/uL (0.0-1.1) Eosinophils # (Auto) 0.0x10^3/uL (0.0-0.7) 0.0x10^3/uL (0.0-0.7) Basophils # (Auto) 0.1x10^3/uL (0.0-0.2) 0.0x10^3/uL (0.0-0.2) Sodium Level 144mmol/L (136-145) 142mmol/L (136-145) Potassium Level 3.8mmol/L (3.5-5.1) 3.4mmol/L (3.5-5.1) Chloride Level 102mmol/L (98-107) 104mmol/L (98-107) Carbon Dioxide Level 31mmol/L (21-32) 28mmol/L (21-32) Anion Gap 11 (6-14) 10 (6-14) Blood Urea Nitrogen 9mg/dL (8-26) 10mg/dL (8-26) Creatinine 0.6mg/dL (0.7-1.3) 0.5mg/dL (0.7-1.3) Estimated GFR (Cockcroft-Gault) 139.9 172.6 BUN/Creatinine Ratio 15 (6-20) Glucose Level 157mg/dL (70-99) 117mg/dL (70-99) Calcium Level 9.3mg/dL (8.5-10.1) 8.7mg/dL (8.5-10.1) Total Bilirubin 0.3mg/dL (0.2-1.0) Aspartate Amino Transf (AST/SGOT) 37U/L (15-37) Alanine Aminotransferase (ALT/SGPT) 56U/L (16-63) Alkaline Phosphatase 113U/L (46-116) Total Protein 7.8g/dL (6.4-8.2) Albumin 4.1g/dL (3.4-5.0) Albumin/Globulin Ratio 1.1 (1.0-1.7) Lipase 1063U/L (73-393) 113U/L (73-393) Ethyl Alcohol Level 13mg/dL (0-10) Influenza Type A Antigen Negative (NEGATIVE) Influenza Type B Antigen Negative (NEGATIVE) Urine Collection Type Unknown Urine Color Yellow Urine Clarity Clear Urine pH 8.0 Urine Specific [place] >=1.030 Urine Protein Negativemg/dL (NEG-TRACE) Urine Glucose (UA) Negativemg/dL (NEG) Urine Ketones (Stick) Tracemg/dL (NEG) Urine Blood Negative (NEG) Urine Nitrite Negative (NEG) Urine Bilirubin Negative (NEG) Urine Urobilinogen Dipstick 0.2mg/dL (0.2 mg/dL) Urine Leukocyte Esterase Negative (NEG) Urine RBC 0/HPF (0-2) Urine WBC 0/HPF (0-4) Urine Bacteria 0/HPF (0-FEW) Urine Mucus Slight/LPF Urine Opiates Screen Pos (NEG) Urine Methadone Screen Neg (NEG) Urine Barbiturates Neg (NEG) Urine Phencyclidine Screen Neg (NEG) Urine Amphetamine/Methamphetamine Neg (NEG) Urine Benzodiazepines Screen Neg (NEG) Urine Cocaine Screen Neg (NEG) Urine Cannabinoids Screen Neg (NEG) Urine Ethyl Alcohol Pos (NEG) Triglycerides Level 62mg/dL (0-150) Cholesterol Level 280mg/dL (0-200) LDL Cholesterol, Calculated 180mg/dL (0-100) VLDL Cholesterol, Calculated 12mg/dL (0-40) HDL Cholesterol 88mg/dL (40-60) Cholesterol/HDL Ratio 3.2 Brief Hospital Course Mr. Lowe is a 56 old [sex] who presented with [ ]History of Present Illness 56 y/o male who only takes elavil at home, heavy drinker (6 packs a day), comes in bec of emesis, abd pain, etoh level at er was 13m lipase 1060. CTs can fails to show pancreatic inflammation but did show his indwelling colostomy bag left side from a perforated diverticulitis 2 yrs ago at [facility] and some DJD LS spine, Pt admitted for acute panc. ALso smokes 1 ppday NO GB stones seen, non obese Stayed overnight, lipase down to normal with IVF and NPO<> REquests rx for narcs, 15 tabs given Pt seen and examined DisPo: home ConsultsL: GI Proc none Discharge Information Condition at Discharge: Improved, Stable Disposition/Orders: D/C to Home Scheduled Amitriptyline Hcl (Amitriptyline Hcl) 1 TAB PO QHS (Reported) TOMMY CHISHOLM MD Aug 26, 2016 10:41
[2016-08-26 11:07] VITALS: BP 166/94
== END 2016-08-26 14:15 | disposition home or self-care (01) | DRG 439 ==
LOC: ER 10:32 → ED HOLD 12:50 → 5 SOUTH 18:09
PROVIDERS: ADMIT Internal Medicine; ATTEND Internal Medicine
DX: K85.20 Alcohol induced acute pancreatitis without necrosis or infection (principal); E44.1 Mild protein-calorie malnutrition; R65.10 Systemic inflammatory response syndrome (SIRS) of non-infectious origin without acute organ dysfunction; M19.90 Unspecified osteoarthritis, unspecified site; F17.200 Nicotine dependence, unspecified, uncomplicated; F32.9 Major depressive disorder, single episode, unspecified; F41.9 Anxiety disorder, unspecified; Z93.3 Colostomy status; Z68.20 Body mass index [BMI] 20.0-20.9, adult
CPT/HCPCS: 36415; 74022; 74177; 80048; 80053; 80061; 81001; 83690; 85027; 87804; 90686; 93005; 96361; 96374; 96375; 99406; G0480; G0481; J1100; J2405; J7030; Q9967; 99285-25